=== PATIENT | female | born 1955 | race Caucasian/White ===

== ENCOUNTER 2017-02-10 16:38 | Day surgery (SDC) | payer BC ==
[~2017-02-10 16:38] MED LIST: Sodium Chloride 0.9% 10 ML Syringe FLUSH PRN; Sodium Chloride 0.9% 2.5 ML Syringe FLUSH PRN; fentaNYL 100 MCG/2 ML SDV IVPUSH PRN
[2017-02-10] MEDS ORDERED: fentaNYL 100 MCG/2 ML SDV ONE ×4 (17:22→18:44)
[2017-02-10] MEDS ORDERED: Lidocaine 2% 5 ML SDV ONE (17:22)
[2017-02-10] MEDS ORDERED: Propofol 200 MG/20 ML SDV ONE (17:22)
[2017-02-10] MEDS ORDERED: Rocuronium 10 MG/ML 10 ML Syringe ONE (17:22)
[2017-02-10] MEDS ORDERED: Ondansetron 4 MG/2 ML SDV ONE (17:22)
[2017-02-10] MEDS ORDERED: Succinylcholine/Normal Saline 200 MG/10 ML Syringe ONE (17:22)
[2017-02-10] MEDS ORDERED: Midazolam 1 MG/ML 2 ML SDV ONE (17:23)
[2017-02-10] MEDS: Lactated Ringers 1,000 ML IV SCH (17:27)
[2017-02-10] MEDS ORDERED: Bupivacaine 0.5% 30 ML SDV ONE (17:30)
--- NOTE | 2017-02-10 17:51 | PCM.PREANE ---
Preanesthetic Assessment - Anesthesia/Transfusion/Family Hx Anesthesia History: Prior Anesthesia Without Reaction Family History of Anesthesia Reaction: No Intubation History: Unknown - Review of Systems General: No Symptoms Pulmonary: No Symptoms Cardiovascular: No Symptoms Gastrointestinal: No Symptoms Neurological: No Symptoms Other: Reports: None - Physical Assessment O2 Sat by Pulse Oximetry: 98 Respiratory Rate: 20 Vital Signs: Last Vital Signs Temp Pulse Resp 20 02/10/17 17:03 BP 125/60 02/10/17 17:03 Pulse Ox 98 02/10/17 17:03 Height: 1.52 m Weight: 71.849 kg ASA Class: 2E Mental Status: Alert & Oriented x3 Airway Class: Mallampati = 2 Dentition: Reports: Normal Dentition Thyro-Mental Finger Breadths: 3 Mouth Opening Finger Breadths: 3 ROM/Head Extension: Full Lungs: Clear to Auscultation, Normal Respiratory Effort Cardiovascular: Regular Rate, Regular Rhythm - Lab Values: Laboratory Last Values POC Glucose 140 mg/dL (60-110) H 02/10/17 17:36 - Allergies Allergies/Adverse Reactions: Allergies Allergy/AdvReac Type Severity Reaction Status Date / Time dye Allergy Severe Cardiac Uncoded 02/10/17 16:59 Arrest - Blood Blood Available: No - Anesthesia Plan Pre-Op Medication Ordered: None - Acknowledgements Anesthesia Type Planned: General Anesthesia Pt an Appropriate Candidate for the Planned Anesthesia: Yes Alternatives and Risks of Anesthesia Discussed w Pt/Guardian: Yes Pt/Guardian Understands and Agrees with Anesthesia Plan: Yes PreAnesthesia Questionnaire Cardiovascular History: Reports: High Cholesterol, Hypertension Endocrine/Metabolic History: Reports: Diabetes, Type II, Obesity/BMI 30+ - Past Surgical History HEENT Surgical History: Reports: Oral Surgery, Tonsillectomy GI Surgical History: Reports: Colonoscopy Female Surgical History: Reports: Section (x1), D&C (x3) - HOME MEDS Home Medications: Home Meds Eluxadoline [Viberzi] 1 tab PO DAILY 02/10/17 [History] Fluconazole [Diflucan] 1 tab PO DAILY 02/10/17 [History] Losartan Potassium 1 tab PO DAILY 02/10/17 [History] SitaGLIPtin [Januvia] 1 tab PO BID 02/10/17 [History] atorvaSTATin Calcium [Atorvastatin Calcium] 1 tab PO DAILY 02/10/17 [History] metFORMIN HCl [Metformin HCl] 1 tab PO DAILY 02/10/17 [History] - CURRENT (IN HOUSE) MEDS Current Meds: Current Medications Fentanyl (Sublimaze) 50 mcg IVPUSH Q5M PRN PRN Reason: Pain (severe 7-10) Stop: 02/11/17 16:36 Lactated Ringer's (Ringers, Lactated) 1,000 mls @ 125 mls/hr IV ASDIRECTED [facility] Last Admin: 02/10/17 17:27 Dose: 125 mls/hr Cefoxitin Sodium 2 gm/ Premix 50 mls @ 100 mls/hr IV Q6H [facility] Sodium Chloride (Saline Flush) 10 ml FLUSH ASDIRECTED PRN PRN Reason: Keep Vein Open Sodium Chloride (Saline Flush) 2.5 ml FLUSH ASDIRECTED PRN PRN Reason: Keep Vein Open Discontinued Medications Bupivacaine HCl (Marcaine 0.5%) Confirm Administered Dose 30 ml .ROUTE .STK-MED ONE Stop: 02/10/17 17:31 Fentanyl (Sublimaze) Confirm Administered Dose 200 mcg .ROUTE .STK-MED ONE Stop: 02/10/17 17:23 Lidocaine (Xylocaine-Mpf 2%) Confirm Administered Dose 5 ml .ROUTE .STK-MED ONE Stop: 02/10/17 17:23 Midazolam HCl (Versed 1 Mg/Ml) Confirm Administered Dose 2 mg .ROUTE .STK-MED ONE Stop: 02/10/17 17:24 Ondansetron HCl (Zofran) Confirm Administered Dose 4 mg .ROUTE .STK-MED ONE Stop: 02/10/17 17:23 Propofol (Diprivan 20 Ml) Confirm Administered Dose 200 mg .ROUTE .STK-MED ONE Stop: 02/10/17 17:23 Rocuronium [place] (Zemuron) Confirm Administered Dose 100 mg .ROUTE .STK-MED ONE Stop: 02/10/17 17:23 Succinylcholine Chloride (Succinylcholine In Ns Pf) Confirm Administered Dose 200 mg .ROUTE .STK-MED ONE Stop: 02/10/17 17:23
[2017-02-10] MEDS ORDERED: Sodium Chloride 0.9% 20 ML ONE (18:00)
[2017-02-10] MEDS ORDERED: cefOXitin 1 GM Vial ONE (18:00)
[2017-02-10] MEDS ORDERED: Gelatin Sponge,Absorbable 12-7 mm Sponge TOP ONE (18:12)
[2017-02-10] MEDS ORDERED: Phenylephrine/Normal Saline 100 MCG/ML 10 ML Syringe ONE (18:21)
[2017-02-10] MEDS ORDERED: cefOXitin 2 GM in Premix Bag 1 BAG IV SCH (19:15)
[2017-02-10] MEDS ORDERED: Acetaminophen/oxyCODONE 325-5 MG Tab PO PRN (19:15)
[2017-02-10] MEDS ORDERED: Ondansetron 4 MG/2 ML SDV IVPUSH PRN (19:15)
--- NOTE | 2017-02-10 19:24 | PCM.OPNOTE ---
- General Post-Op/Procedure Note Date of Surgery/Procedure: 02/10/17 Operative Procedure(s): Exam under anesthesia, incision and drainage perianal abscess, seton placement x 2 Findings: Complex left sided perianal abscess that extended from a large anterior perianal fistula to posterior anal fissure. Pre Op Diagnosis: Anal fissure, perianal abscess Post-Op Diagnosis: Complex anal fistula Anesthesia Technique: General ET Tube Primary Surgeon: Lillian Loyola Fluid Replacement, Intraop: 1,300 EBL in mLs: 50 Condition: Good Free Text/Narrative:: Intake & Output 02/10/17 02/10/17 02/10/17 06:59 14:59 22:59 Output Total 300 Balance -300
[2017-02-10] MEDS ORDERED: HYDROmorphone 1 MG/ML Syringe IV PRN (19:25)
--- NOTE | 2017-02-10 19:42 | PCM.POSTAN ---
POST ANESTHESIA ASSESSMENT - MENTAL STATUS Mental Status: Alert, Oriented - RESPIRATORY Respiratory Status: Respiratory Rate WNL, Airway Patent, O2 Saturation Stable - CARDIOVASCULAR CV Status: Pulse Rate WNL, Blood Pressure Stable - GASTROINTESTINAL GI Status: No Symptoms - POST OP HYDRATION Hydration Status: Adequate & Stable
[2017-02-10] MEDS: cefOXitin 2 GM in Premix Bag 1 BAG IV SCH (20:50)
--- NOTE | 2017-02-10 22:32 | PCM48HPAN ---
Post Anesthesia Note - EVALUATION WITHIN 48HRS OF ANESTHETIC Vital Signs in Normal Range: Yes Patient Participated in Evaluation: Yes Respiratory Function Stable: Yes Airway Patent: Yes Cardiovascular Function Stable: Yes Hydration Status Stable: Yes Pain Control Satisfactory: Yes Nausea and Vomiting Control Satisfactory: Yes Mental Status Recovered: Yes
[2017-02-11] MEDS: cefOXitin 2 GM in Premix Bag 1 BAG IV SCH ×2 (00:20→04:51)
--- NOTE | 2017-02-11 00:37 | OR ---
SURGEON: MATY COWAN MD DATE OF PROCEDURE: 02/10/2017 PREOPERATIVE DIAGNOSIS: Perianal abscess, anal fissure. POSTOPERATIVE DIAGNOSIS: Complex perianal fistula disease. PROCEDURE PERFORMED: 1. Exam under anesthesia. 2. Incision and drainage, perianal abscess. 3. Seton placement. ANESTHESIA: General endotracheal anesthesia. FLUIDS: 1300 mL. ESTIMATED BLOOD LOSS: 50 mL. FINDINGS: Anterior and posterior anal fistulas that connected to a large abscess pocket that encompassed the left lateral perianal space. COMPLICATIONS: None. INDICATIONS: The patient is a 61-year-old female, who came to me with several weeks worth of perianal pain. She was diagnosed with an anal fissure in her primary care provider's office. He provided narcotic pain medicines and lidocaine cream. When I saw her in clinic, on exam, the patient had what appeared to be a small posterior anal fissure and an external skin tag anteriorly. However, she was too tender to perform any digital rectal exam on. The patient was given nifedipine cream and said to follow up in a week to see if there wasnt any improvement. The patient stated that over the weekend, her pain got markedly worse and her "hemorrhoids started bleeding." On physical exam in my clinic, she was noted to have a large openly draining perianal abscess on the left anterior buttock cheek. The decision was made to take her to the operating room to perform an exam under anesthesia, incision and drainage of perianal abscess, and possible seton placement. We discussed the procedure as well as the expected perioperative course. We discussed the risks, including bleeding, infection, or damage to surrounding structures including alteration incontinence due to injure injury to the sphincter muscles. The patient verbalized understanding and wishes to proceed. PROCEDURE IN DETAIL: The patient was brought into the OR and remained in the OR cart. A time-out was completed verifying the patient's name, age, date of , allergies, and procedure to be performed. General endotracheal anesthesia was performed on the OR cart. The patient was then flipped onto the OR table and placed in a prone position. The buttocks were prepped and draped in the usual standard fashion. Examination of the anoderm revealed a large anterior perianal abscess. Digital rectal exam showed a rolled, inflamed area in the posterior and anterior midline. At first, I thought these were anal fissures. A fistula probe was inserted into the draining abscess pocket, and this was easily passed through a large anterior fistula. The tissue around it was inflamed with rolled edges due to the chronicity of the fistula. A cruciate incision was made over the opening of the perianal abscess. I irrigated this with normal saline. Normal saline came out through the anterior fistula. A fistula probe was then used to explore the wound further. It actually tracked posterio-laterally all the way to the posterior midline. A more superficial and small-appearing posterior fistula was noted. A counterincision was made laterally along the abscess pocket. A posterior counter -incision was made. Setons were placed in the anterior fistula and then between my lateral counter-incision sites. A final seton was then placed between the posterior anal fissure and the second counterincision site. The wounds were irrigated. Given how inflamed all the tissues were, there was quite a bit of oozing. Gelfoam was placed in the anal canal and the procedure terminated. Prior to taking down the drapes, hemostasis was ensured. Fluffs and mesh panties were applied. The patient was extubated and taken to the PACU in stable condition. LEOPOLDO DIANA /[id number] KAPIL
[2017-02-11] MEDS: Lactated Ringers 1,000 ML IV SCH (07:33)
[2017-02-11] MEDS ORDERED: Multivitamin Tab PO SCH (09:00)
[2017-02-11 09:24] VITALS: BP 113/59
--- NOTE | 2017-02-11 09:39 | PCM.PN ---
- General Info Date of Service: 02/11/17 Functional Status: Reports: Pain Controlled, Tolerating Diet, Ambulating, Urinating - Review of Systems General: Reports: No Symptoms Gastrointestinal: Reports: No Symptoms Skin: Reports: No Symptoms - Patient Data Vitals - Most Recent: Last Vital Signs Temp 36.6 C 02/11/17 09:00 Pulse 78 02/11/17 09:00 Resp 16 02/11/17 09:00 BP 113/59 L 02/11/17 09:00 Pulse Ox 94 L 02/11/17 09:00 Weight - Most Recent: 71.849 kg I&O - Last 24 Hours: Intake & Output 02/10/17 02/11/17 02/11/17 22:59 06:59 14:59 Intake Total 2750 1161 Output Total 300 Balance 2450 1161 Lab Results Last 24 Hours: Laboratory Results - last 24 hr 02/10/17 02/10/17 Range/Units 17:25 17:36 Sodium 141 (136-146) mmol/L Potassium 3.3 L (3.5-5.1) mmol/L Chloride 102 (98-110) mmol/L Carbon Dioxide 27 (21-31) mmol/L BUN 10 (6.0-23.0) mg/dL Creatinine 1.3 (0.6-1.5) mg/dL Est Cr Clr Drug Dosing 31.82 mL/min Estimated GFR (MDRD) 41.4 ml/min Glucose 154 H (60-110) mg/dL POC Glucose 140 H (60-110) mg/dL Calcium 9.4 (8.8-10.8) mg/dL Med Orders - Current: Current Medications Hydromorphone HCl (Dilaudid) 0.5 mg IV Q1H PRN PRN Reason: Pain (severe 7-10) Last Admin: 02/11/17 08:55 Dose: 0.5 mg Cefoxitin Sodium 2 gm/ Premix 50 mls @ 100 mls/hr IV Q6H [facility] Last Admin: 02/11/17 04:51 Dose: 100 mls/hr Multivitamins/Minerals/Vitamin C (Tab-A-Paul) 1 tab PO DAILY [facility] Last Admin: 02/11/17 08:55 Dose: 1 tab Ondansetron HCl (Zofran) 4 mg IVPUSH Q6H PRN PRN Reason: Nausea/Vomiting Oxycodone/Acetaminophen (Percocet 325-5 Mg) 2 tab PO Q4H PRN PRN Reason: Pain (moderate 4-6) Senna/Docusate Sodium (Senna Plus) 1 tab PO BID PRN PRN Reason: Constipation Sodium Chloride (Saline Flush) 10 ml FLUSH ASDIRECTED PRN PRN Reason: Keep Vein Open Sodium Chloride (Saline Flush) 2.5 ml FLUSH ASDIRECTED PRN PRN Reason: Keep Vein Open Discontinued Medications Bupivacaine HCl (Marcaine 0.5%) Confirm Administered Dose 30 ml .ROUTE .STK-MED ONE Stop: 02/10/17 17:31 Cefoxitin Sodium (Mefoxin) Confirm Administered Dose 2 gm .ROUTE .STK-MED ONE Stop: 02/10/17 18:01 Fentanyl (Sublimaze) 50 mcg IVPUSH Q5M PRN PRN Reason: Pain (severe 7-10) Stop: 02/11/17 16:36 Fentanyl (Sublimaze) Confirm Administered Dose 200 mcg .ROUTE .STK-MED ONE Stop: 02/10/17 17:23 Fentanyl (Sublimaze) Confirm Administered Dose 100 mcg .ROUTE .STK-MED ONE Stop: 02/10/17 18:12 Fentanyl (Sublimaze) Confirm Administered Dose 100 mcg .ROUTE .STK-MED ONE Stop: 02/10/17 18:25 Fentanyl (Sublimaze) Confirm Administered Dose 100 mcg .ROUTE .STK-MED ONE Stop: 02/10/17 18:45 Gelatin (Gelfoam 12-7 Mm) Confirm Administered Dose 1 each TOP .STK-MED ONE Stop: 02/10/17 18:13 Lactated Ringer's (Ringers, Lactated) 1,000 mls @ 125 mls/hr IV ASDIRECTED [facility] Last Admin: 02/11/17 07:33 Dose: 125 mls/hr Sodium Chloride (Normal Saline) Confirm Administered Dose 20 mls @ as directed .ROUTE .STK-MED ONE Stop: 02/10/17 18:01 Cefoxitin Sodium 2 gm/ Premix 50 mls @ 100 mls/hr IV Q6H [facility] Last Admin: 02/10/17 23:19 Dose: Not Given Lidocaine (Xylocaine-Mpf 2%) Confirm Administered Dose 5 ml .ROUTE .STK-MED ONE Stop: 02/10/17 17:23 Midazolam HCl (Versed 1 Mg/Ml) Confirm Administered Dose 2 mg .ROUTE .STK-MED ONE Stop: 02/10/17 17:24 Ondansetron HCl (Zofran) Confirm Administered Dose 4 mg .ROUTE .STK-MED ONE Stop: 02/10/17 17:23 Phenylephrine HCl (Phenylephrine In Ns 100 Mcg/Ml) Confirm Administered Dose 1 mg .ROUTE .STK-MED ONE Stop: 02/10/17 18:22 Propofol (Diprivan 20 Ml) Confirm Administered Dose 200 mg .ROUTE .STK-MED ONE Stop: 02/10/17 17:23 Rocuronium [place] (Zemuron) Confirm Administered Dose 100 mg .ROUTE .STK-MED ONE Stop: 02/10/17 17:23 Succinylcholine Chloride (Succinylcholine In Ns Pf) Confirm Administered Dose 200 mg .ROUTE .STK-MED ONE Stop: 02/10/17 17:23 - Exam General: Alert, Oriented Lungs: Normal Respiratory Effort Cardiovascular: Regular Rhythm GI/Abdominal Exam: Soft, Other (Dressings removed from the left lateral buttock I and D site. The wound is much less erythematous and indurated. Incisions are draining adequately. ) - Problem List & Annotations (1) Perianal fistula SNOMED Code(s): 99782356 Code(s): K60.3 - ANAL FISTULA Status: Acute Current Visit: Yes - Problem List Review Problem List Initiated/Reviewed/Updated: Yes - My Orders Last 24 Hours: My Active Orders 02/10/17 17:22 Patient Status [ADT] Routine Resuscitation Status Routine 02/10/17 17:45 cefOXitin [Mefoxin in Dextrose,Iso-Osm 2 GM/50 ML] 2 gm Premix Bag 1 bag IV Q6H 02/10/17 19:15 Oxygen Therapy [RC] PRN RT Incentive Spirometry [RC] ASDIRECTED Up ad Mojgan [RC] ASDIRECTED Vital Signs [RC] Q4H Acetaminophen/oxyCODONE [Percocet 325-5 MG] 2 tab PO Q4H PRN Docusate Sodium/Sennosides [Senna Plus] 1 tab PO BID PRN Ondansetron [Zofran] 4 mg IVPUSH Q6H PRN 02/10/17 19:25 HYDROmorphone [Dilaudid] 0.5 mg IV Q1H PRN 02/10/17 Dinner Regular Diet [DIET] 02/11/17 09:00 Multivitamins [Tab-A-Paul] 1 tab PO DAILY 02/11/17 09:15 Ready for Discharge [RC] PER UNIT ROUTINE - Plan Plan:: -D/C home today. -No need for any further antibiotics -Sitz baths twice per day -Keep stools soft with stool softners and continue fiber therapy. -Lidocaine cream and percocet prn pain -Keep fluff gauze to area to help with drainage. -Will refer to colorectal surgeon for further management but can see me in two weeks for follow up.
== END 2017-02-11 10:23 | disposition home or self-care (01) ==
LOC: MW.SDS 16:38 → MW.MS 17:17 → MW.SDS 02-11 10:23
PROVIDERS: ATTEND Surgery
DX: K61.0 Anal abscess (principal); M19.90 Unspecified osteoarthritis, unspecified site; E78.00 Pure hypercholesterolemia, unspecified; K58.9 Irritable bowel syndrome, unspecified; E11.9 Type 2 diabetes mellitus without complications; Z79.84 Long term (current) use of oral hypoglycemic drugs; Z79.899 Other long term (current) drug therapy; Z90.89 Acquired absence of other organs; Z98.890 Other specified postprocedural states; Z91.041 Radiographic dye allergy status
CPT/HCPCS: 36415; 46280; 80048; 82962; 93005; A9270; J0694; J1170; J2250; J2405; J3010; J7120; 00902; J2704

== ENCOUNTER 2019-10-29 15:24 | Emergency (ER) | payer BC ==
--- NOTE | 2019-10-29 16:45 | CT ---
Head CT Technique: Multiple axial sections through the brain were obtained. Intravenous contrast was not utilized. Comparison: No prior intracranial imaging is available. Findings: Ventricles along with basal cisterns and sulci over the convexities are within normal limits for the patient's age. No abnormal parenchymal densities are appreciated. No evidence of intracranial hemorrhage. No midline shift or mass effect is seen. Bone window settings were reviewed which shows no acute calvarial abnormality. Visualized paranasal sinuses and mastoid sinus is shown nothing acute. Impression: 1. Nothing acute is appreciated on noncontrast head CT study. Diagnostic code #1 Study was dictated in MDT
--- NOTE | 2019-10-29 17:04 | EDM.PDOC ---
ED HPI GENERAL MEDICAL PROBLEM - General Chief Complaint: Head Injury Stated Complaint: Pt FELL AND HIT HEAD Time Seen by Provider: 10/29/19 15:27 Source of Information: Reports: Patient History Limitations: Reports: No Limitations - History of Present Illness INITIAL COMMENTS - FREE TEXT/NARRATIVE: 64-year-old female with a past medical history of diabetes mellitus, hyperlipide hans, hypertension presenting with a head injury. Around 8:00 this morning, the patient was walking to her house when she stumbled over an uneven concrete surface, causing her to stumble forward and strike the right side of her forehead against a glass door. She did not lose consciousness. She was slightly dazed but was able to stand up and continue walking. She presents to the emergency department complaining of a headache to the right side of her forehead along with subjective swelling. She denies any other complaints. She denies any posttraumatic emesis, seizure activity, facial or extremity numbness or weakness, dysarthria, dysphasia, diplopia, impaired coordination or gait, neck pain, or any other complaints. head Pain Score (Numeric/FACES): 3 - Related Data Allergies Allergy/AdvReac Type Severity Reaction Status Date / Time dye Allergy Severe Cardiac Uncoded 02/10/17 16:59 Arrest Home Meds: Home Meds Losartan Potassium 50 mg PO DAILY 02/10/17 [History] atorvaSTATin Calcium [Atorvastatin Calcium] 20 mg PO DAILY 02/10/17 [History] metFORMIN HCl [Metformin HCl] 1,000 mg PO BIDMEALS 02/10/17 [History] Latanoprost 125 mcg EYEBOTH ASDIRECTED 10/29/19 [History] Olopatadine [Pataday 0.2% Ophth Soln] 1 drop EYEBOTH ASDIRECTED 10/29/19 [History] glipiZIDE [Glipizide] 5 mg PO DAILY 10/29/19 [History] Past Medical History HEENT History: Reports: None Cardiovascular History: Reports: High Cholesterol, Hypertension Other Gastrointestinal History: Chrons Endocrine/Metabolic History: Reports: Diabetes, Type II, Obesity/BMI 30+ - Infectious Disease History Infectious Disease History: Reports: Measles - Past Surgical History HEENT Surgical History: Reports: Oral Surgery, Tonsillectomy GI Surgical History: Reports: Colonoscopy Female Surgical History: Reports: Section, D&C Social & Family History - Family History Family Medical History: Noncontributory - Tobacco Use Smoking Status *Q: Never Smoker - Caffeine Use Caffeine Use: Reports: Coffee - Recreational Drug Use Recreational Drug Use: No ED ROS GENERAL - Review of Systems Review Of Systems: See Below Constitutional: Denies: Fever, Chills HEENT: Denies: Vision Change Respiratory: Denies: Shortness of Breath Cardiovascular: Denies: Chest Pain Endocrine: Reports: No Symptoms GI/Abdominal: Denies: Abdominal Pain, Nausea, Vomiting : Denies: Flank Pain Musculoskeletal: Denies: Neck Pain, Back Pain Skin: Denies: Wound Neurological: Reports: Headache. Denies: Dizziness, Numbness, Paresthesia, Pre- Existing Deficit, Seizure, Syncope, Tingling, Trouble Speaking, Difficulty Walking, Weakness, Change in Speech, Gait Disturbance Psychiatric: Reports: No Symptoms Hematologic/Lymphatic: Reports: No Symptoms Immunologic: Reports: No Symptoms ED EXAM, HEAD INJURY - Physical Exam Exam: See Below Text/Narrative:: Vital signs reviewed. Nursing notes reviewed. Constitutional: Awake, alert, non-distressed. Head: Normocephalic, mild swelling to the right side of the forehead without wou nds or contusion. Eyes: EOMI, conjunctiva normal, no discharge, no scleral icterus. Ears, Nose, Throat: External ears and nose normal, moist oral mucosa. TMs and EACs clear bilaterally. No smiley sign or raccoon's eyes. No otorrhea or rhinorrhea. Cardiovascular: 2+ radial pulse, capillary refill less than 2 seconds. Pulmonary: normal work of breathing, no accessory muscle use. CTA BL Abdomen/GI: Soft, nontender, nondistended, no guarding or rigidity, no masses. Musculoskeletal: No deformities. Integumentary: Appropriate color for ethnicity, warm, dry, no pallor or jaundice, no rash. Neurologic: Awake, alert, and oriented x3. Cranial nerves II through XII intact. No facial droop or dysarthria. Supple neck with normal range of motion. No pronator drift. Normal [id number] and [id number]. No dysdiadochokinesia. 5/5 strength in all extremities. Sensation intact to light touch x4. Normal gait. Able to sit, stand, and ambulate without assistance. Psychiatric: Appropriate mood and affect, normal thought process. Course - Vital Signs Text/Narrative:: 64-year-old female with headache after blunt head impact. Patient hemodynamically stable, afebrile, well-appearing, looks nontoxic. Differential diagnosis includes but is not limited to: TBI, skull fracture, cerebral contusion, subarachnoid hemorrhage, intracranial hemorrhage, subdural hematoma, facial bone fracture, etc. Neurologically intact, well-appearing. No wounds to repair. CT imaging of the head was unremarkable. Normal mental status, ambulating without difficulty. No anticoagulant or antiplatelet medication usage. She was noted to be hypertensive, but has a history of hypertension and denies any visual disturbance, chest discomfort, shortness of breath, or other signs of a hypertensive emergency. Declined analgesic medications. Given negative work-up, stable to discharge home with outpatient primary care follow-up. Strict florinda ency department return precautions were provided, patient indicated understanding. All questions were answered prior to departure. Discharged in good condition. Last Recorded V/S: Last Vital Signs Temp 35.9 C L 10/29/19 15:37 Pulse 67 10/29/19 17:25 Resp 17 10/29/19 17:25 BP 195/83 H 10/29/19 17:25 Pulse Ox 98 10/29/19 17:25 Departure - Departure Time of Disposition: 17:04 Disposition: Home, Self-Care 01 Condition: Good Clinical Impression: Accidental fall Qualifiers: Encounter type: initial encounter Qualified Code(s): W19.XXXA - Unspecified fall, initial encounter Blunt head injury Qualifiers: Encounter type: initial encounter Qualified Code(s): S09.8XXA - Other specified injuries of head, initial encounter - Discharge Information *PRESCRIPTION DRUG MONITORING PROGRAM REVIEWED*: Not Applicable *COPY OF PRESCRIPTION DRUG MONITORING REPORT IN PATIENT JOSÉ MANUEL: Not Applicable Instructions: Fall Prevention in the Home, Adult, Kibn-[id number], Head Injury, Adult, [id number] Referrals: Shayan El MD [Primary Care Provider] - 3 Days (As needed.) Forms: ED Department Discharge Additional Instructions: Thank you for choosing the [facility] emergency department in [place] for your medical needs today. It was a pleasure caring for you. You were seen in the emergency department for evaluation after head trauma. Your head CT scan was normal. I recommend [id number] acetaminophen and ibuprofen for pain. Return to ER immediately for worsening headache, blurred vision, or any other worsening symptoms. Please return the emergency department immediately if your symptoms worsen or if you feel worse. The following information is given to patients seen in the emergency department who are being discharged. This information is to outline your options for follow-up care. We provide all patients seen in our emergency department with a follow-up referral. The need for follow-up, as well as the timing and circumstances, are variable depending upon the specifics of your emergency department visit. If you don't have a primary care physician on staff, we will provide you with a referral. We always advise you to contact your personal physician following an emergency department visit to inform them of the circumstance of the visit and for follow-up with them and/or the need for any referrals to a consulting specialist. The emergency department will also refer you to a specialist when appropriate. This referral assures that you have the opportunity for follow-up care with a specialist. All of these measure are taken in an effort to provide you with optimal care, which includes your follow-up. Under all circumstances we always encourage you to contact your private physician who remains a resource for coordinating your care. When calling for follow-up care, please make the office aware that this follow-up is from your recent emergency room visit. If for any reason you are refused follow-up, please contact the [facility] Emergency Department at and asked to speak to the emergency department charge nurse. If you do not have a primary care physician that is caring for you, you can contact these clinics below to set up an appointment to establish care: [facility] - Primary Care [address] [place] [address] [facility] [address] [place] [address] Sepsis Event Note (ED) - Evaluation Sepsis Screening Result: No Definite Risk
[2019-10-29 17:26] VITALS: BP 195/83; PULSE 67
== END 2019-10-29 17:27 | disposition home or self-care (01) ==
LOC: MW.ED 15:24
DX: S09.90XA Unspecified injury of head, initial encounter (principal); I10 Essential (primary) hypertension; E11.9 Type 2 diabetes mellitus without complications; E78.00 Pure hypercholesterolemia, unspecified; E66.9 Obesity, unspecified; Z68.37 Body mass index [BMI] 37.0-37.9, adult; Z79.84 Long term (current) use of oral hypoglycemic drugs; Z91.048 Other nonmedicinal substance allergy status; Z79.899 Other long term (current) drug therapy; W22.8XXA Striking against or struck by other objects, initial encounter; Y93.01 Activity, walking, marching and hiking
CPT/HCPCS: 70450; 70450-26; 99284; 99284-25

== ENCOUNTER 2024-03-04 13:29 | Emergency (ER) | payer BC ==
[2024-03-04 14:12] VITALS: BP 156/64; PULSE 64
[2024-03-04] MEDS: Acetaminophen 500 MG Tab PO ONE (14:58)
[2024-03-04] MEDS: Ibuprofen 600 MG Tab PO ONE (15:01)
[2024-03-04] MEDS: Lidocaine 2% 5 ML SDV INJECT ONE ×2 (16:29→16:31)
[2024-03-04] MEDS: Lidocaine 1% 5 ML VIAL INJECT ONE (16:32)
[2024-03-04] MEDS: Bacitracin Oint 28.35 GM Tube TOP ONE (18:34)
== END 2024-03-04 18:45 | disposition home or self-care (01) ==
LOC: MW.ED 13:29
DX: S52.502A Unspecified fracture of the lower end of left radius, initial encounter for closed fracture (principal); S50.311A Abrasion of right elbow, initial encounter; S60.511A Abrasion of right hand, initial encounter; S80.211A Abrasion, right knee, initial encounter; E78.00 Pure hypercholesterolemia, unspecified; I10 Essential (primary) hypertension; E11.9 Type 2 diabetes mellitus without complications; E66.9 Obesity, unspecified; Z79.899 Other long term (current) drug therapy; Z79.84 Long term (current) use of oral hypoglycemic drugs; Z91.041 Radiographic dye allergy status; Z75.8 Other problems related to medical facilities and other health care; W01.0XXA Fall on same level from slipping, tripping and stumbling without subsequent striking against object, initial encounter
CPT/HCPCS: 25605; 73110; 73130; 99283; A9270; J3490

== ENCOUNTER 2024-03-10 07:57 | Day surgery (SDC) | payer BC ==
[~2024-03-10 07:57] MED LIST changes: +Albuterol 0.083% 2.5 MG/3 ML Neb Soln NEB PRN; +HYDROmorphone 1 MG/ML Syringe IVPUSH PRN; +Metoclopramide 10 MG/2 ML SDV IVPUSH PRN; +Morphine 2 MG/ML SYRINGE IVPUSH PRN; +Naloxone 0.4 MG/ML SDV IVPUSH PRN; +Ondansetron 4 MG/2 ML SDV IVPUSH PRN; +Phenylephrine HCl In 0.9% NaCl 1 MG/10 ML Syringe IVPUSH PRN; -Sodium Chloride 0.9% 10 ML Syringe FLUSH PRN; -Sodium Chloride 0.9% 2.5 ML Syringe FLUSH PRN; -fentaNYL 100 MCG/2 ML SDV IVPUSH PRN; +fentaNYL 50 MCG/ML SDV IVPUSH PRN
[2024-03-10] MEDS: Lactated Ringers 1,000 ML IV SCH (08:28)
[2024-03-10] MEDS ORDERED: Ropivacaine 0.5% 5 MG/ML 30 ML SDV ONE (08:47)
[2024-03-10] MEDS ORDERED: Water For Injection, Sterile 20 ML ONE (08:48)
[2024-03-10] MEDS ORDERED: Lidocaine 1% 5 ML VIAL ONE (08:48)
[2024-03-10] MEDS ORDERED: fentaNYL 100 MCG/2 ML SDV ONE (08:48)
[2024-03-10] MEDS ORDERED: dexmedeTOMIDine HCl 200 MCG/2 ML SDV ONE (08:48)
[2024-03-10] MEDS ORDERED: propofoL 50 ML ONE (09:18)
[2024-03-10 11:13] VITALS: PULSE 59
[2024-03-10 12:25] VITALS: BP 156/75
== END 2024-03-10 12:11 | disposition home or self-care (01) ==
LOC: MW.SDS 07:57
PROVIDERS: ATTEND Orthopaedic Surgery
DX: S52.502A Unspecified fracture of the lower end of left radius, initial encounter for closed fracture (principal); I10 Essential (primary) hypertension; E11.9 Type 2 diabetes mellitus without complications; X58.XXXA Exposure to other specified factors, initial encounter
CPT/HCPCS: 25605; 64415; 76000; J2704; J2795; J3010; J7120; J3490